=== PATIENT | female | born 1945 | race Caucasian/White ===

== ENCOUNTER 2024-02-15 15:44 | Emergency (ER) | payer SELFPAY ==
[2024-02-15 15:47] VITALS: BP 129/88
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
[2024-02-15] MEDS: TYLENOL 500 MG PO (19:33)
[2024-02-15 20:43] VITALS: BP 175/100
== END 2024-02-15 20:51 | disposition home or self-care (01) ==
LOC: EMR 15:44
PROVIDERS: EMERGENCY PHYSICIAN Emergency Medicine; FAMILY PHYSICIAN Family Medicine
DX: R51.9 Headache, unspecified (principal); R07.89 Other chest pain; V49.49XA Driver injured in collision with other motor vehicles in traffic accident, initial encounter; I10 Essential (primary) hypertension; Z86.73 Personal history of transient ischemic attack (TIA), and cerebral infarction without residual deficits; I48.91 Unspecified atrial fibrillation; Z79.01 Long term (current) use of anticoagulants; Z90.12 Acquired absence of left breast and nipple; Z90.5 Acquired absence of kidney
CPT/HCPCS: 99284; 70450; 71046; 93005